=== PATIENT | female | born 1990 | race Two or more races ===

== ENCOUNTER 2017-06-05 07:53 | Inpatient (IN) | payer MEDICAID ==
[~2017-06-05] VITALS: Ht 154.9 cm; Wt 35.4 kg
[2017-06-05] MEDS ORDERED: SODIUM CHLORIDE 0.9% 1,000 ML IVB ONE (08:10)
[2017-06-05] MEDS ORDERED: NALBUPHINE HCL 10 MG/1ml INJECTION IV ONE ×2 (08:15→11:00)
[2017-06-05] MEDS: PROMETHAZINE HCL 25 MG/ML 1ML IV PRN (08:30)
[2017-06-05 08:47] LABS: Basophils # (auto) 0 uL; Basophils % (auto) 0.4 % (0.0-2.0); Eosinophils # (auto) 0.1 uL; Eosinophils % (auto) 1.5 % (0.0-7.0); Hematocrit 39.3 % (36.0-46.0); Hemoglobin 13.1 g/dL (12.2-16.2); Lymphocytes # (auto) 0.8 uL; Lymphocytes % (auto) 9.7 % (10.0-50.0); Mean Corpuscular Hemoglobin 28.7 pg (28.0-32.0); Mean Corpuscular Hgb Conc. 33.3 g/dL (32.0-36.0); Mean Corpuscular Volume 86.1 fL (80.0-100.0); Mean Platelet Volume 7.3 fL (6.9-10.8); Monocytes # (auto) 0.2 uL; Monocytes % (auto) 2.6 % (0.0-12.0); Neutrophils # (auto) 7.3 uL; Neutrophils % (auto) 85.8 % (37.0-80.0); Platelet Count (auto) 415 10^3/uL (140-450); White Blood Cell 8.5 10^3/uL (4.4-10.8)
[2017-06-05 09:05] LABS: Albumin 2.7 g/dL (3.4-5.0); BUN/Creatinine Ratio 8.6; Bilirubin, Total 0.3 mg/dL (0.2-1.0); Calcium 7.8 mg/dL (8.5-10.1); Magnesium 1.6 mg/dL (1.6-2.6); Potassium 3.2 mmol/L (3.5-5.1); Total Protein 7.2 g/dL (6.4-8.2)
[2017-06-05] MEDS ORDERED: cefTRIAXone 1GM/50ML D5W 50 ML IV ONE (10:30)
[2017-06-05] MEDS ORDERED: metroNIDAZOLE 500MG/100ML 100 ML IV ONE (10:30)
[2017-06-05 10:42] LABS: Urine Bilirubin Negative (Negative); Urine Blood 1+ /uL (Negative); Urine Color Yellow (Yellow); Urine Glucose 2+ mg/dL (Normal); Urine Ketone Negative (Negative); Urine Nitrite Negative (Negative); Urine RBC 2 /hpf (0 - 4); Urine Squamous Epithelial Cell FEW /hpf (<5); Urine Urobilinogen Normal (Negative); Urine pH 5.5 (5.0-8.0)
[2017-06-05 10:47] LABS: INR 1.72 (0.9-1.15); Partial Thromboplastin Time 37.4 sec (22.64-33.71); Prothrombin Time 18.9 sec (9.37-12.3)
[2017-06-05] MEDS: HYDROmorphone HCL 2 MG/ML VL IV PRN ×4 (11:00→23:00)
[2017-06-05] MEDS ORDERED: SODIUM CHLORIDE 0.9% 1,000 ML IV ONE (11:00)
[2017-06-05] MEDS ORDERED: ONDANSETRON HCL 4 MG/2 ML VIAL IV PRN (11:30)
[2017-06-05] MEDS ORDERED: DEXTROSE (50%) 50ML SYRG IV PRN (11:30)
[2017-06-05] MEDS ORDERED: MORPHINE SULFATE 10 MG/ML INJ 1ML SDV IV PRN (11:30)
[2017-06-05] MEDS ORDERED: NITROGLYCERIN 0.4 MG SL TAB SL PRN (11:30)
[2017-06-05] MEDS ORDERED: VANCOMYCIN PER PHARMACY 0 MG IV SCH (11:30)
[2017-06-05] MEDS ORDERED: FAMOTIDINE (10MG/ML) 2ML VL IV ONE (11:45)
[2017-06-05] MEDS ORDERED: POTASSIUM CHLORIDE 20 MEQ, LIDOCAINE 1% (LOCAL ANESTH.) 2 ML in SODIUM CHL 0.9% 100 ML IV ONE (12:00)
[2017-06-05] MEDS: ACCU-CHEK COMFORT CURVE STRIP VI SCH ×2 (12:01→18:00)
[2017-06-05] MEDS: InsuLIN REG 1unit/0.01ml Soln (100units/ml) SC SCH ×2 (12:05→18:00)
[2017-06-05] MEDS: ENOXAPARIN SOD 100 MG/1 ML SYRINGE SC SCH ×2 (12:05→22:00)
[2017-06-05 12:27] LABS: Lactic Acid w/Reflex 3.1 mmol/L (0.4-2.0)
[2017-06-05 12:54] LABS: REFLEX LACTIC ACID YES OR NO YES
[2017-06-05] MEDS: VANCOMYCIN 1GM/250ML D5W 250 ML IV SCH ×2 (13:12→20:45)
[2017-06-05] MEDS ORDERED: WARF6TAB21 PO (16:16)
[2017-06-05] MEDS ORDERED: WARF5TAB71 PO (16:16)
[2017-06-05 17:12] VITALS: BP 101/52
[2017-06-05 22:00] VITALS: BP 84/50
[2017-06-05] MEDS ORDERED: ACETAMINOPHEN 325 MG TAB PO PRN (23:30)
[2017-06-05] MEDS: SODIUM CHLORIDE 0.9% 1,000 ML IV SCH (23:30)
[2017-06-06 00:32] LABS: Basophils # (auto) 0 uL; Basophils % (auto) 0.2 % (0.0-2.0); Eosinophils # (auto) 0 uL; Eosinophils % (auto) 0.2 % (0.0-7.0); Hematocrit 33.5 % (36.0-46.0); Lymphocytes # (auto) 1.1 uL; Lymphocytes % (auto) 9.2 % (10.0-50.0); Mean Corpuscular Hemoglobin 27.9 pg (28.0-32.0); Mean Corpuscular Hgb Conc. 32.8 g/dL (32.0-36.0); Mean Corpuscular Volume 85.1 fL (80.0-100.0); Mean Platelet Volume 7.2 fL (6.9-10.8); Monocytes # (auto) 0.9 uL; Monocytes % (auto) 7.5 % (0.0-12.0); Neutrophils % (auto) 82.9 % (37.0-80.0); Platelet Count (auto) 336 10^3/uL (140-450); Red Cell Distribution Width 14.3 % (11.8-14.3); White Blood Cell 12.1 10^3/uL (4.4-10.8)
[2017-06-06] MEDS: InsuLIN REG 1unit/0.01ml Soln (100units/ml) SC SCH ×5 (01:52→23:33)
[2017-06-06 04:57] VITALS: BP 103/67
[2017-06-06] MEDS: VANCOMYCIN 1GM/250ML D5W 250 ML IV SCH ×3 (05:00→21:00)
[2017-06-06 05:56] LABS: Basophils # (auto) 0 uL; Basophils % (auto) 0.4 % (0.0-2.0); Eosinophils # (auto) 0 uL; Eosinophils % (auto) 0.2 % (0.0-7.0); Hematocrit 34.1 % (36.0-46.0); Hemoglobin 11.2 g/dL (12.2-16.2); Lymphocytes # (auto) 1.2 uL; Lymphocytes % (auto) 10.7 % (10.0-50.0); Mean Corpuscular Hemoglobin 27.9 pg (28.0-32.0); Mean Corpuscular Hgb Conc. 32.8 g/dL (32.0-36.0); Mean Corpuscular Volume 85.2 fL (80.0-100.0); Mean Platelet Volume 7.3 fL (6.9-10.8); Monocytes % (auto) 8.6 % (0.0-12.0); Neutrophils # (auto) 8.9 uL; Neutrophils % (auto) 80.1 % (37.0-80.0); Platelet Count (auto) 330 10^3/uL (140-450); Red Cell Distribution Width 14.4 % (11.8-14.3); White Blood Cell 11.2 10^3/uL (4.4-10.8)
[2017-06-06] MEDS: ACCU-CHEK COMFORT CURVE STRIP VI SCH ×5 (05:57→23:34)
[2017-06-06 06:15] LABS: Albumin 2.5 g/dL (3.4-5.0); BUN/Creatinine Ratio 6.8; Calcium 8.2 mg/dL (8.5-10.1); Potassium 3.8 mmol/L (3.5-5.1); Total Protein 7.2 g/dL (6.4-8.2)
[2017-06-06 08:00] VITALS: BP 89/57
[2017-06-06 09:37] VITALS: BP 109/65
[2017-06-06] MEDS: HYDROmorphone HCL 2 MG/ML VL IV PRN ×3 (10:19→20:22)
[2017-06-06] MEDS: ENOXAPARIN SOD 100 MG/1 ML SYRINGE SC SCH ×2 (10:19→21:46)
[2017-06-06] MEDS: FAMOTIDINE (10MG/ML) 2ML VL IV SCH (10:20)
[2017-06-06] MEDS: SODIUM CHLORIDE 0.9% 1,000 ML IV SCH (12:50)
[2017-06-06 17:00] VITALS: BP 120/77
[2017-06-06 21:30] VITALS: BP 124/76
[2017-06-07] MEDS: HYDROmorphone HCL 2 MG/ML VL IV PRN ×6 (01:07→20:53)
[2017-06-07] MEDS: VANCOMYCIN 1GM/250ML D5W 250 ML IV SCH (01:12)
[2017-06-07] MEDS: SODIUM CHLORIDE 0.9% 1,000 ML IV SCH ×2 (02:10→15:30)
[2017-06-07 05:01] VITALS: BP 113/71
[2017-06-07] MEDS: InsuLIN REG 1unit/0.01ml Soln (100units/ml) SC SCH ×4 (06:00→23:41)
[2017-06-07] MEDS: ACCU-CHEK COMFORT CURVE STRIP VI SCH ×4 (06:20→23:41)
[2017-06-07 06:30] VITALS: BP 106/67
[2017-06-07] MEDS ORDERED: PIPERACILLIN TAZO IV ONE (08:00)
[2017-06-07] MEDS ORDERED: [UNRECOGNIZED DRUG - OTHER] IV ONE (08:00)
[2017-06-07 08:30] VITALS: BP 117/70
[2017-06-07 09:00] VITALS: BP 130/86
[2017-06-07] MEDS: FAMOTIDINE (10MG/ML) 2ML VL IV SCH (10:46)
[2017-06-07] MEDS: ENOXAPARIN SOD 100 MG/1 ML SYRINGE SC SCH ×2 (10:46→21:01)
[2017-06-07 13:00] VITALS: BP 111/70
[2017-06-07] MEDS: [UNRECOGNIZED DRUG - OTHER] IV SCH ×2 (16:41→21:01)
[2017-06-07] MEDS: PIPERACILLIN TAZO IV SCH ×2 (16:41→21:01)
[2017-06-07 17:30] VITALS: BP 111/69
[2017-06-08] MEDS: SODIUM CHLORIDE 0.9% 1,000 ML IV SCH ×2 (04:50→18:09)
[2017-06-08] MEDS: HYDROmorphone HCL 2 MG/ML VL IV PRN ×5 (04:59→22:03)
[2017-06-08 05:39] VITALS: BP 101/59
[2017-06-08] MEDS: PIPERACILLIN TAZO IV SCH ×3 (06:13→22:10)
[2017-06-08] MEDS: ACCU-CHEK COMFORT CURVE STRIP VI SCH ×3 (06:13→18:08)
[2017-06-08] MEDS: [UNRECOGNIZED DRUG - OTHER] IV SCH ×3 (06:13→22:10)
[2017-06-08] MEDS: InsuLIN REG 1unit/0.01ml Soln (100units/ml) SC SCH ×3 (06:19→18:00)
[2017-06-08 09:10] VITALS: BP 131/64
[2017-06-08] MEDS: ENOXAPARIN SOD 100 MG/1 ML SYRINGE SC SCH ×2 (09:19→22:11)
[2017-06-08] MEDS: FAMOTIDINE (10MG/ML) 2ML VL IV SCH (09:20)
[2017-06-08 12:30] VITALS: BP 120/62
[2017-06-08 17:00] VITALS: BP 122/76
[2017-06-08 22:00] VITALS: BP 99/62
[2017-06-09] MEDS: HYDROmorphone HCL 2 MG/ML VL IV PRN ×2 (03:41→11:27)
[2017-06-09 05:00] VITALS: BP 107/63
[2017-06-09] MEDS: ACCU-CHEK COMFORT CURVE STRIP VI SCH ×4 (06:00→18:05)
[2017-06-09] MEDS: InsuLIN REG 1unit/0.01ml Soln (100units/ml) SC SCH ×4 (06:00→18:00)
[2017-06-09] MEDS: [UNRECOGNIZED DRUG - OTHER] IV SCH ×2 (06:10→14:00)
[2017-06-09] MEDS: PIPERACILLIN TAZO IV SCH ×2 (06:10→14:00)
[2017-06-09 06:21] LABS: Basophils # (auto) 0 uL; Basophils % (auto) 0.6 % (0.0-2.0); Eosinophils # (auto) 0.2 uL; Eosinophils % (auto) 3.5 % (0.0-7.0); Hematocrit 32.3 % (36.0-46.0); Hemoglobin 10.7 g/dL (12.2-16.2); Lymphocytes # (auto) 1.1 uL; Lymphocytes % (auto) 17.3 % (10.0-50.0); Mean Corpuscular Hgb Conc. 33.1 g/dL (32.0-36.0); Mean Corpuscular Volume 84.6 fL (80.0-100.0); Monocytes # (auto) 0.9 uL; Monocytes % (auto) 13.3 % (0.0-12.0); Neutrophils # (auto) 4.2 uL; Neutrophils % (auto) 65.3 % (37.0-80.0); Platelet Count (auto) 364 10^3/uL (140-450); Red Cell Distribution Width 14.2 % (11.8-14.3); White Blood Cell 6.4 10^3/uL (4.4-10.8)
[2017-06-09 06:43] LABS: Albumin 2.1 g/dL (3.4-5.0); BUN/Creatinine Ratio 5.1; Bilirubin, Total 0.5 mg/dL (0.2-1.0); Calcium 8.1 mg/dL (8.5-10.1); Potassium 3.2 mmol/L (3.5-5.1); Total Protein 6.6 g/dL (6.4-8.2)
[2017-06-09] MEDS: SODIUM CHLORIDE 0.9% 1,000 ML IV SCH (07:30)
[2017-06-09 08:00] VITALS: BP 129/79
[2017-06-09 08:48] VITALS: BP 129/79
[2017-06-09] MEDS: FAMOTIDINE (10MG/ML) 2ML VL IV SCH (10:03)
[2017-06-09] MEDS: PROMETHAZINE HCL 25 MG/ML 1ML IV PRN (10:03)
[2017-06-09] MEDS: ENOXAPARIN SOD 100 MG/1 ML SYRINGE SC SCH (10:03)
[2017-06-09 10:47] VITALS: BP 129/79
[2017-06-09 16:33] VITALS: BP 134/79
== END 2017-06-09 18:27 | disposition home or self-care (01) | DRG 720 ==
LOC: ER 07:53 → TELE 07:54 → TELE-CENTR 14:50 → CENTRAL 06-08 23:45
PROVIDERS: ADMIT Internal Medicine; ATTEND Internal Medicine
DX: A41.9 Sepsis, unspecified organism (principal); K85.90 Acute pancreatitis without necrosis or infection, unspecified; E44.0 Moderate protein-calorie malnutrition; K57.20 Diverticulitis of large intestine with perforation and abscess without bleeding; E11.65 Type 2 diabetes mellitus with hyperglycemia; E83.51 Hypocalcemia; E66.9 Obesity, unspecified; E87.6 Hypokalemia; Z79.01 Long term (current) use of anticoagulants; Z83.3 Family history of diabetes mellitus; Z68.1 Body mass index [BMI] 19.9 or less, adult; Z86.711 Personal history of pulmonary embolism; Z86.718 Personal history of other venous thrombosis and embolism; Z71.3 Dietary counseling and surveillance
CPT/HCPCS: 36415; 51702; 71010; 74176; 80053; 80202; 81001; 82150; 82962; 83036; 83605; 83690; 83735; 84443; 84702; 85025; 85610; 85730; 87040; 87493; 93005; 94761; 96361; 96365; 96366; 96367; 96375; J0696; J1815; J2001; J2543; J3490

== ENCOUNTER 2019-06-21 06:42 | Inpatient (IN) | payer MEDICAID ==
[~2019-06-21] VITALS: Ht 154.9 cm; Wt 99.3 kg
[~2019-06-21 06:42] MED LIST: CEPH500C PO; METR500T14 PO
[2019-06-21 07:31] LABS: Urine WBC None Seen /hpf (0 - 5)
[2019-06-21] MEDS ORDERED: SODIUM CHLORIDE 0.9% 500 ML IVB ONE (07:37)
[2019-06-21] MEDS ORDERED: SODIUM CHLORIDE 0.9% 1,000 ML IV ONE (07:37)
[2019-06-21 07:39] LABS: Basophils # (auto) 0.1 uL; Basophils % (auto) 0.6 % (0.0-2.0); Eosinophils # (auto) 0.1 uL; Eosinophils % (auto) 1.2 % (0.0-7.0); Hematocrit 43.7 % (36.0-46.0); Hemoglobin 14.7 g/dL (12.2-16.2); Lymphocytes # (auto) 1.8 uL; Lymphocytes % (auto) 16.4 % (10.0-50.0); Mean Corpuscular Hemoglobin 29.6 pg (28.0-32.0); Mean Corpuscular Hgb Conc. 33.7 g/dL (32.0-36.0); Mean Corpuscular Volume 87.9 fL (80.0-100.0); Monocytes # (auto) 0.7 uL; Monocytes % (auto) 6.9 % (0.0-12.0); Neutrophils # (auto) 8.1 uL; Neutrophils % (auto) 74.9 % (37.0-80.0); Nucleated Red Blood Cells % 0.1 %; Platelet Count (auto) 319 10^3/uL (140-450); Red Blood Cells 4.97 10^6/uL (4.0-5.20); Red Cell Distribution Width 13.6 % (11.8-14.3); White Blood Cell 10.8 10^3/uL (4.4-10.8)
[2019-06-21] MEDS ORDERED: IOHEXOL 300 MG/ML 100ML BOTTLE IJ ONE (07:43)
[2019-06-21 07:45] LABS: Urine Bacteria FEW /hpf (None Seen); Urine Blood Negative /uL (Negative); Urine Mucus FEW (None Seen); Urine Specific Gravity 1.014 (1.001-1.035)
[2019-06-21] MEDS ORDERED: METOCLOPRAMIDE HCL 5MG/ml INJ 2ml VIAL IV ONE (07:45)
[2019-06-21] MEDS ORDERED: KETOROLAC TROMETH 30 MG/ML 1ML VIAL IV ONE (07:45)
[2019-06-21 07:46] LABS: Albumin 3.5 g/dL (3.4-5.0); BUN/Creatinine Ratio 8.1; Calcium 8.8 mg/dL (8.5-10.1); Potassium 3.7 mmol/L (3.5-5.1)
[2019-06-21 07:49] LABS: Bilirubin, Total 0.9 mg/dL (0.2-1.0); Total Protein 7.8 g/dL (6.4-8.2)
[2019-06-21 08:04] LABS: Magnesium 1.9 mg/dL (1.6-2.6)
[2019-06-21] MEDS ORDERED: metroNIDAZOLE 500MG/100ML 100 ML IV ONE (09:45)
[2019-06-21] MEDS ORDERED: cefTRIAXone 1GM/50ML D5W 50 ML IV ONE (09:45)
[2019-06-21] MEDS ORDERED: DEXTROSE (50%) 50ML SYRG IV PRN (10:00)
[2019-06-21] MEDS: MORPHINE SULF INJ 2 MG/ML SYRINGE 1ML IV PRN ×4 (11:24→22:58)
[2019-06-21] MEDS: ONDANSETRON HCL 4 MG/2 ML VIAL IV PRN ×2 (11:24→19:37)
[2019-06-21] MEDS: InsuLIN REG 1unit/0.01ml Soln (100units/ml) SC SCH ×3 (11:24→21:46)
[2019-06-21] MEDS: ACCU-CHEK COMFORT CURVE STRIP VI SCH ×3 (11:25→21:46)
--- NOTE | 2019-06-21 11:28 | NUR ---
MS admit from ER RAD[facility] QUIROGA admitted to tele/MS after SBAR received. Patient oriented to [facility], primary RN, unit, room, bed, and unit policies regarding patient care and visiting hours. Patient weighed by bed scale and encouraged to call if they need something. All questions and concerns addressed, patient verbalized understanding.
[2019-06-21 11:30] VITALS: BP_SYST 115; BP_SYST 117; BP_DIAS 63
[2019-06-21] MEDS: metroNIDAZOLE 500MG/100ML 100 ML IV SCH ×2 (13:27→21:45)
[2019-06-21 17:23] VITALS: BP 108/63
--- NOTE | 2019-06-21 18:01 | NUR ---
Patient said she has pressure to left lower abdominal and bloating, hospitalist paged , awaiting to call back.
--- NOTE | 2019-06-21 19:30 | NUR ---
Opening Shift Note Assumed care of patient, awake and alert x4. No S/S of distress/SOB or pain. Instructed on POC and to call for assist PRN. Call light is within reach, side rails up x2, bed is in lowest position, brakes are locked. All questions and concerns answered, will continue to monitor for changes Q1hr and PRN.
--- NOTE | 2019-06-21 19:59 | NUR ---
Neil hospitalist, patient is complaining of pressure in her abdomen and states aside from a small one today she has not had a normal BM for 5 days, she is asking for a stool softener.
[2019-06-21] MEDS ORDERED: POLYETHYLENE GLYCOL 17 GM PWDR PO ONE (20:45)
--- NOTE | 2019-06-21 20:45 | NUR ---
Hospitalist called back, new order received for Miralax 17gm powder one time, will carry out and continue to monitor patient.
[2019-06-21 23:55] VITALS: BP 95/55
[2019-06-22] MEDS: MORPHINE SULF INJ 2 MG/ML SYRINGE 1ML IV PRN ×2 (03:14→11:55)
[2019-06-22] MEDS: ONDANSETRON HCL 4 MG/2 ML VIAL IV PRN ×3 (03:15→22:03)
[2019-06-22 05:18] LABS: Basophils # (auto) 0 uL; Basophils % (auto) 0.4 % (0.0-2.0); Eosinophils # (auto) 0.1 uL; Eosinophils % (auto) 1.3 % (0.0-7.0); Hematocrit 35.3 % (36.0-46.0); Hemoglobin 12.2 g/dL (12.2-16.2); Lymphocytes # (auto) 1.5 uL; Lymphocytes % (auto) 17.1 % (10.0-50.0); Mean Corpuscular Hemoglobin 30.2 pg (28.0-32.0); Mean Corpuscular Hgb Conc. 34.6 g/dL (32.0-36.0); Mean Corpuscular Volume 87.3 fL (80.0-100.0); Monocytes # (auto) 0.8 uL; Monocytes % (auto) 9.4 % (0.0-12.0); Neutrophils # (auto) 6.3 uL; Neutrophils % (auto) 71.8 % (37.0-80.0); Platelet Count (auto) 243 10^3/uL (140-450); Red Blood Cells 4.04 10^6/uL (4.0-5.20); Red Cell Distribution Width 13.5 % (11.8-14.3); White Blood Cell 8.8 10^3/uL (4.4-10.8)
[2019-06-22 05:22] VITALS: BP 115/68
[2019-06-22 05:47] LABS: BUN/Creatinine Ratio 6.7; Potassium 3.8 mmol/L (3.5-5.1)
[2019-06-22] MEDS: metroNIDAZOLE 500MG/100ML 100 ML IV SCH ×3 (05:59→22:02)
[2019-06-22] MEDS: InsuLIN REG 1unit/0.01ml Soln (100units/ml) SC SCH ×2 (05:59→11:30)
[2019-06-22] MEDS: ACCU-CHEK COMFORT CURVE STRIP VI SCH ×2 (06:00→12:07)
[2019-06-22] MEDS ORDERED: METF-370 PO (07:48)
[2019-06-22 09:00] VITALS: BP 112/70
[2019-06-22] MEDS: cefTRIAXone 1GM/50ML D5W 50 ML IV SCH (09:23)
[2019-06-22 13:00] VITALS: BP 110/56
[2019-06-22] MEDS: SODIUM CHLORIDE 0.9% 1,000 ML IV SCH (14:49)
[2019-06-22] MEDS: HYDROmorphone HCL 2 MG/ML VL IV PRN ×2 (15:55→22:03)
[2019-06-22] MEDS: LACTULOSE 20Gm/30ML SOLN PO PRN ×2 (16:19→22:04)
[2019-06-22 16:58] VITALS: BP 106/63
--- NOTE | 2019-06-22 19:40 | NUR ---
Opening Shift Note Assumed care of patient, awake and alert. No S/S of distress/SOB or pain. Instructed on POC and to call for assist PRN, will continue to monitor for changes Q1hr and PRN.
[2019-06-22 22:42] VITALS: BP 100/63
[2019-06-23] MEDS: SODIUM CHLORIDE 0.9% 1,000 ML IV SCH ×3 (00:17→16:42)
[2019-06-23] MEDS: metroNIDAZOLE 500MG/100ML 100 ML IV SCH ×3 (05:04→22:20)
[2019-06-23] MEDS: ONDANSETRON HCL 4 MG/2 ML VIAL IV PRN (05:05)
[2019-06-23] MEDS: HYDROmorphone HCL 2 MG/ML VL IV PRN (05:05)
[2019-06-23 05:52] VITALS: BP 103/66
[2019-06-23 07:44] LABS: Calcium 8.3 mg/dL (8.5-10.1); Magnesium 1.8 mg/dL (1.6-2.6)
[2019-06-23 07:46] LABS: BUN/Creatinine Ratio 7.2
[2019-06-23] MEDS: cefTRIAXone 1GM/50ML D5W 50 ML IV SCH (08:30)
[2019-06-23 09:00] VITALS: BP 122/71
[2019-06-23 13:00] VITALS: BP 115/77
[2019-06-23] MEDS ORDERED: MAGNESIUM SULFATE 1GM/100ML 100 ML IV ONE (14:30)
--- NOTE | 2019-06-23 14:36 | NUR ---
NUTRITION ASSESSMENT NOTES Please refer to link notes of nutrition screen form filed under the intervention section of the plan of care for further details. Est. Needs based on AdBW (61 kg): 1200 kcal to 1550 kcal (25-30 kcal/kgAdBW), 61 gms to 73 gms pro (1.0-1.2 gms/kgAdBW). Will continue to monitor pertinent labs and reassess nutrient need prn Thank you. Addendum: 06/23/19 at [address] Amended: Links added.
--- NOTE | 2019-06-23 16:30 | NUR ---
PAGED DR. MAGAÑA RE DIET ORDER PT STATED THAT MD TOLD HER THAT SHE WAS GOING TO CHANGE IT TO SOFT DIET. MD ORDERED FULL LIQUID DIET. MD HAS NOT RETURNED CALL AT THIS TIME.
[2019-06-23 17:00] VITALS: BP 127/65
--- NOTE | 2019-06-23 18:30 | NUR ---
PT C/O PAIN, SWELLING IN HER LT ANTECUBITAL SITE. WAS WONDERING IF IT WAS FROM THE IV. IV SITE LEFT FOREARM, NOTED TO BE PATENT, CLEAR AND NO REDNESS OR SWELLING NOTED. WILL CONTINUE TO MONITOR SITE.
[2019-06-23 22:00] VITALS: BP 124/67
[2019-06-24 05:00] VITALS: BP 119/77
[2019-06-24] MEDS: SODIUM CHLORIDE 0.9% 1,000 ML IV SCH (05:57)
[2019-06-24] MEDS: metroNIDAZOLE 500MG/100ML 100 ML IV SCH ×2 (05:57→13:09)
--- NOTE | 2019-06-24 08:46 | NUR ---
pt back from procedure resting comfortably in bed
[2019-06-24] MEDS: cefTRIAXone 1GM/50ML D5W 50 ML IV SCH (08:53)
[2019-06-24 09:09] VITALS: BP 132/69
--- NOTE | 2019-06-24 10:50 | NUR ---
pt wants to be left off iv fluids so she can walk around risk and benefits explained
--- NOTE | 2019-06-24 12:50 | NUR ---
md heath rounded on pt did not adavance diet, pt communicated want to go home, per pt will b discharged explained to pt importance of staying on full liquid diet till her primary can arrange to see a GI. pt to be discharged home on atb
[2019-06-24 13:00] VITALS: BP 119/58
--- NOTE | 2019-06-24 13:16 | NUR ---
pt stated she needs a voucher to discharge home, pt stated her RN from a couple days ago stated she can have voucher, advised pt i will notify pump house operator
--- NOTE | 2019-06-24 13:51 | NUR ---
housekeeper nanny made aware of pt needing voucher to go home
--- NOTE | 2019-06-24 16:14 | NUR ---
called md due to pt inquiring on discharge time
[2019-06-24 16:24] VITALS: BP 114/72
--- NOTE | 2019-06-24 16:52 | NUR ---
PT SIGNED DISCHARGE PAPERWORK, IV REMOVED NO BLEEDING NOTED, AWAITING [facility] FOR PT TRANSPORT HOME ETA 30-45 MINUTES
--- NOTE | 2019-06-24 17:14 | NUR ---
PT LEFT TO HOME AMBULATORY ACCOMPANIED BY RESOURCE NURSE
== END 2019-06-24 17:14 | disposition home or self-care (01) | DRG 244 ==
LOC: ER 06:42 → OVERFLOW 06:43 → WEST WING 11:02
PROVIDERS: ADMIT Nurse Practitioner Acute Care; ATTEND Internal Medicine
DX: K57.32 Diverticulitis of large intestine without perforation or abscess without bleeding (principal); E66.01 Morbid (severe) obesity due to excess calories; N83.202 Unspecified ovarian cyst, left side; E11.9 Type 2 diabetes mellitus without complications; F17.210 Nicotine dependence, cigarettes, uncomplicated; F12.90 Cannabis use, unspecified, uncomplicated; Z72.89 Other problems related to lifestyle; Z86.711 Personal history of pulmonary embolism; Z68.41 Body mass index [BMI] 40.0-44.9, adult; Z83.3 Family history of diabetes mellitus; Z80.0 Family history of malignant neoplasm of digestive organs; Z79.84 Long term (current) use of oral hypoglycemic drugs
CPT/HCPCS: 36415; 71046; 74177; 80048; 80053; 81001; 81025; 82962; 83036; 83690; 83735; 85025; G0378; J0696; J1885; J2405; J3490

== ENCOUNTER 2022-01-27 21:43 | Inpatient (IN) | payer MEDICAID ==
[~2022-01-27] VITALS: Ht 162.6 cm; Wt 130.2 kg
[~2022-01-27 21:43] MED LIST changes: -CEPH500C PO; +METF-370 PO; -METR500T14 PO
[2022-01-27] MEDS ORDERED: cefTRIAXone 1GM/50ML D5W 50 ML IV ONE (22:15)
[2022-01-27] MEDS ORDERED: SODIUM CHLORIDE 0.9% 1,000 ML IV ONE ×2 (22:15)
[2022-01-27 23:22] LABS: Basophils # (auto) 0.1 10 ^3/uL (0-0.2); Eosinophils # (auto) 0.3 10 ^3/uL (0-0.8); Eosinophils % (auto) 3.2 % (0.0-7.0); Hematocrit 42.9 % (36.0-46.0); Hemoglobin 14.8 g/dL (12.2-16.2); Lymphocytes # (auto) 1.5 10 ^3/uL (0.4-5.4); Lymphocytes % (auto) 15.1 % (10.0-50.0); Mean Corpuscular Hemoglobin 30.4 pg (28.0-32.0); Mean Corpuscular Hgb Conc. 34.6 g/dL (32.0-36.0); Mean Corpuscular Volume 87.9 fL (80.0-100.0); Monocytes # (auto) 0.5 10 ^3/uL (0-1.3); Monocytes % (auto) 5.4 % (0.0-12.0); Neutrophils # (auto) 7.5 10 ^3/uL (1.6-8.6); Neutrophils % (auto) 75.3 % (37.0-80.0); Nucleated Red Blood Cells % 0.1 %; Red Blood Cells 4.87 10^6/uL (4.0-5.20); Red Cell Distribution Width 12.5 % (11.8-14.3)
[2022-01-27 23:24] LABS: Urine Bacteria FEW /hpf (None Seen); Urine Blood Negative /uL (Negative); Urine Specific Gravity 1.012 (1.001-1.035); Urine WBC 2 /hpf (0 - 5)
[2022-01-27 23:37] LABS: Albumin 3.7 g/dL (3.4-5.0); BUN/Creatinine Ratio 13.3; Calcium 9.1 mg/dL (8.5-10.1); Potassium 4.1 mmol/L (3.5-5.1)
[2022-01-27 23:40] LABS: Bilirubin, Total 0.6 mg/dL (0.2-1.0)
[2022-01-27 23:41] LABS: Lactic Acid w/Reflex 2.6 mmol/L (0.4-2.0)
[2022-01-28] MEDS ORDERED: ENOXAPARIN SOD 150 MG/1 ML SYRINGE SC ONE (01:15)
[2022-01-28] MEDS ORDERED: IOHEXOL 350 MG/ML 100ML IJ ONE (01:23)
[2022-01-28] MEDS ORDERED: MORPHINE SULFATE INJ 2 MG/ml SYRG IV PRN (04:30)
[2022-01-28] MEDS ORDERED: TEMAZEPAM 15 MG CAP PO PRN (04:30)
[2022-01-28] MEDS ORDERED: ACETAMINOPHEN 325 MG TAB PO PRN (04:30)
[2022-01-28] MEDS ORDERED: ONDANSETRON HCL 4 MG/2 ML VIAL IV PRN (04:30)
[2022-01-28] MEDS ORDERED: NITROGLYCERIN 0.4 MG SL TAB SL PRN (04:30)
[2022-01-28] MEDS: PANTOPRAZOLE 40 MG TAB PO SCH (09:41)
[2022-01-28] MEDS: ASPirin 81 mg TAB PO SCH (09:41)
[2022-01-28] MEDS: ENOXAPARIN SOD 100 MG/1 ML SYRINGE SC SCH (14:08)
[2022-01-28] MEDS ORDERED: DEXTROSE (50%) 50ML SYRG IV PRN (15:00)
[2022-01-28 16:40] VITALS: BP 122/83
[2022-01-28] MEDS: ACCU-CHEK COMFORT CURVE STRIP VI SCH ×2 (16:49→21:55)
[2022-01-28] MEDS: InsuLIN REG 1unit/0.01ml Soln (100units/ml) SC SCH ×2 (16:54→22:08)
[2022-01-28 20:00] VITALS: BP 123/78
[2022-01-28] MEDS: cefTRIAXone 1GM/50ML D5W 50 ML IV SCH (21:51)
[2022-01-28] MEDS: ATORVASTATIN 20 MG TAB PO SCH (21:53)
[2022-01-28 22:00] VITALS: BP 123/78
[2022-01-29] MEDS: ENOXAPARIN SOD 100 MG/1 ML SYRINGE SC SCH ×2 (00:37→13:09)
[2022-01-29 04:55] VITALS: BP 127/77
[2022-01-29 05:28] LABS: Basophils # (auto) 0.3 10 ^3/uL (0-0.2); Basophils % (auto) 4.1 % (0.0-2.0); Eosinophils # (auto) 0.3 10 ^3/uL (0-0.8); Eosinophils % (auto) 4.9 % (0.0-7.0); Hematocrit 38.3 % (36.0-46.0); Hemoglobin 13.5 g/dL (12.2-16.2); Lymphocytes # (auto) 2.3 10 ^3/uL (0.4-5.4); Lymphocytes % (auto) 32.8 % (10.0-50.0); Mean Corpuscular Hemoglobin 30.8 pg (28.0-32.0); Mean Corpuscular Hgb Conc. 35.2 g/dL (32.0-36.0); Mean Corpuscular Volume 87.5 fL (80.0-100.0); Monocytes # (auto) 0.4 10 ^3/uL (0-1.3); Monocytes % (auto) 6.3 % (0.0-12.0); Neutrophils # (auto) 3.7 10 ^3/uL (1.6-8.6); Neutrophils % (auto) 51.9 % (37.0-80.0); Nucleated Red Blood Cells % 0.2 %; Red Blood Cells 4.38 10^6/uL (4.0-5.20); Red Cell Distribution Width 12.4 % (11.8-14.3)
[2022-01-29 05:31] LABS: INR 1.1 (0.9-1.15)
[2022-01-29 05:54] LABS: Potassium 3.9 mmol/L (3.5-5.1)
[2022-01-29 06:02] LABS: Albumin 3.1 g/dL (3.4-5.0); BUN/Creatinine Ratio 10.5; Bilirubin, Total 0.8 mg/dL (0.2-1.0); Calcium 8.7 mg/dL (8.5-10.1); Total Protein 6.9 g/dL (6.4-8.2)
[2022-01-29] MEDS: ACCU-CHEK COMFORT CURVE STRIP VI SCH ×4 (06:21→21:59)
[2022-01-29] MEDS: InsuLIN REG 1unit/0.01ml Soln (100units/ml) SC SCH ×4 (06:25→22:15)
[2022-01-29] MEDS: ASPirin 81 mg TAB PO SCH (08:32)
[2022-01-29] MEDS: PANTOPRAZOLE 40 MG TAB PO SCH (08:32)
[2022-01-29 08:56] VITALS: BP 121/74
[2022-01-29 13:25] VITALS: BP 140/94
[2022-01-29 16:26] VITALS: BP 134/97
[2022-01-29] MEDS: ATORVASTATIN 20 MG TAB PO SCH (21:59)
[2022-01-29] MEDS: cefTRIAXone 1GM/50ML D5W 50 ML IV SCH (21:59)
[2022-01-30] VITALS (7 sets, daily range): BP systolic 116–131; BP diastolic 76–94
[2022-01-30] MEDS: ENOXAPARIN SOD 100 MG/1 ML SYRINGE SC SCH ×2 (01:30→13:00)
[2022-01-30 06:28] LABS: Potassium 4.8 mmol/L (3.5-5.1)
[2022-01-30] MEDS: ACCU-CHEK COMFORT CURVE STRIP VI SCH ×3 (06:47→18:52)
[2022-01-30] MEDS: InsuLIN REG 1unit/0.01ml Soln (100units/ml) SC SCH ×3 (06:48→18:53)
[2022-01-30] MEDS: ASPirin 81 mg TAB PO SCH (11:21)
[2022-01-30] MEDS: PANTOPRAZOLE 40 MG TAB PO SCH (11:22)
[2022-01-30] MEDS ORDERED: IOHEXOL 350 MG/ML 100ML IJ ONE (14:20)
[2022-01-30] MEDS ORDERED: ANGIOMAX 250 MG VIAL IV ONE (14:29)
[2022-01-30] MEDS ORDERED: fentaNYL CITRATE 100 MCG/2 ML VL ONE (14:29)
[2022-01-30] MEDS ORDERED: MIDAZOLAM HCL 2MG/2ML 2ml VIAL (1mg/ml) ONE (14:29)
[2022-01-30] MEDS ORDERED: SODIUM CHL 0.9% 0 ML ONE (14:29)
[2022-01-30] MEDS ORDERED: LIDOCAINE 2%HCL (LOCAL ANESTH.) INJ 10ml MDV ONE (14:30)
== END 2022-01-30 19:15 | disposition home or self-care (01) | DRG 134 ==
LOC: ER 21:43 → TELE 01-28 04:23 → TELE-WESTW 01-28 08:58
PROVIDERS: ADMIT Nurse Practitioner; ATTEND Internal Medicine
PROC: 4A023N8 Measurement of Cardiac Sampling and Pressure, Bilateral, Percutaneous Approach (ICD-10-PCS; principal; 2022-01-30)
PROC: B2111ZZ Fluoroscopy of Multiple Coronary Arteries using Low Osmolar Contrast (ICD-10-PCS; 2022-01-30)
PROC: B2151ZZ Fluoroscopy of Left Heart using Low Osmolar Contrast (ICD-10-PCS; 2022-01-30)
DX: I26.99 Other pulmonary embolism without acute cor pulmonale (principal); I21.A1 Myocardial infarction type 2; I27.21 Secondary pulmonary arterial hypertension; I82.442 Acute embolism and thrombosis of left tibial vein; E11.65 Type 2 diabetes mellitus with hyperglycemia; R06.03 Acute respiratory distress; N39.0 Urinary tract infection, site not specified; I11.9 Hypertensive heart disease without heart failure; Z20.822 Contact with and (suspected) exposure to COVID-19; F12.90 Cannabis use, unspecified, uncomplicated; E66.01 Morbid (severe) obesity due to excess calories; F17.210 Nicotine dependence, cigarettes, uncomplicated; Z68.42 Body mass index [BMI] 45.0-49.9, adult; Z80.0 Family history of malignant neoplasm of digestive organs; Z83.3 Family history of diabetes mellitus; Z86.711 Personal history of pulmonary embolism; Z86.718 Personal history of other venous thrombosis and embolism; Z98.891 History of uterine scar from previous surgery; Z71.6 Tobacco abuse counseling; Z79.84 Long term (current) use of oral hypoglycemic drugs
CPT/HCPCS: 36415; 71045; 71275; 80053; 80061; 81001; 82962; 83036; 83605; 83735; 83880; 84132; 84443; 84484; 84702; 85025; 85379; 85610; 86147; 87040; 87086; 93005; 93306; 93460; 93970; 96361; 96365; 99152; 99153; 99291; C1751; G0378; J0696; J1815; J2001; J2250

== ENCOUNTER 2023-04-01 09:37 | Emergency (ER) | payer MEDICAID ==
[~2023-04-01] VITALS: Ht 154.9 cm; Wt 128.1 kg
[2023-04-01 10:52] VITALS: BP 125/78; PULSE 98; RESP 18; TEMP 97.3; O2SAT 100
[2023-04-01 11:58] LABS: Urine Bacteria NONE SEEN /hpf (None Seen); Urine Blood Negative /uL (Negative); Urine Clarity HAZY (Clear); Urine Color Yellow (Yellow); Urine Protein, UAD Negative (Negative); Urine Specific Gravity 1.011 (1.001-1.035); Urine Urobilinogen Normal (Negative); Urine WBC 4 /hpf (0 - 5)
[2023-04-01] MEDS ORDERED: CEPH500C PO (12:02)
[2023-04-01] MEDS ORDERED: ACET-1080 PO (12:02)
== END 2023-04-01 12:09 | disposition home or self-care (01) ==
LOC: ER 09:37
DX: O26.891 Other specified pregnancy related conditions, first trimester (principal); J03.90 Acute tonsillitis, unspecified; R51.9 Headache, unspecified; E11.9 Type 2 diabetes mellitus without complications; F17.210 Nicotine dependence, cigarettes, uncomplicated; F15.90 Other stimulant use, unspecified, uncomplicated; Z3A.09 9 weeks gestation of pregnancy; Z98.890 Other specified postprocedural states; Z79.84 Long term (current) use of oral hypoglycemic drugs; Z79.1 Long term (current) use of non-steroidal anti-inflammatories (NSAID); Z79.899 Other long term (current) drug therapy
CPT/HCPCS: 81001; 81002

== ENCOUNTER 2024-04-16 15:42 | Emergency (ER) | payer MEDICAID ==
[~2024-04-16] VITALS: Ht 154.9 cm; Wt 126.1 kg
[~2024-04-16 15:42] MED LIST changes: +ACET-1080 PO; +CEPH500C PO
[2024-04-16 16:10] VITALS: BP 132/75; PULSE 89; RESP 14; O2SAT 97
[2024-04-16 17:48] LABS: Basophils # (auto) 0.1 10 ^3/uL (0-0.2); Basophils % (auto) 0.8 % (0.0-2.0); Eosinophils # (auto) 0.2 10 ^3/uL (0-0.8); Eosinophils % (auto) 2.1 % (0.0-7.0); Hematocrit 41.2 % (36.0-46.0); Hemoglobin 13.9 g/dL (12.2-16.2); Lymphocytes # (auto) 2.6 10 ^3/uL (0.4-5.4); Lymphocytes % (auto) 29.7 % (10.0-50.0); Mean Corpuscular Hemoglobin 29.4 pg (28.0-32.0); Mean Corpuscular Hgb Conc. 33.8 g/dL (32.0-36.0); Monocytes # (auto) 0.6 10 ^3/uL (0-1.3); Monocytes % (auto) 6.4 % (0.0-12.0); Neutrophils # (auto) 5.3 10 ^3/uL (1.6-8.6); Platelet Count (auto) 310 10^3/uL (140-450); Red Blood Cells 4.73 10^6/uL (4.0-5.20); White Blood Cell 8.7 10^3/uL (4.4-10.8)
[2024-04-16 18:04] LABS: Partial Thromboplastin Time 25.4 SEC (24.5-34.5); Prothrombin Time 10.6 sec (9.3-11.8)
[2024-04-16 18:07] LABS: Urine Bacteria FEW /hpf (None Seen); Urine Blood 3+ /uL (Negative); Urine Clarity Turbid (Clear); Urine Color Light-Yellow (Yellow); Urine Hyaline Cast FEW /lpf (0 - 2); Urine Protein, UAD Negative (Negative); Urine Specific Gravity 1.013 (1.001-1.035); Urine Urobilinogen Normal (Negative); Urine WBC 3 /hpf (0 - 5); Urine pH 5.5 (5.0-9.0)
== END 2024-04-16 21:29 | disposition home or self-care (01) ==
LOC: ER 15:42
DX: O20.9 Hemorrhage in early pregnancy, unspecified (principal); R10.2 Pelvic and perineal pain; O24.311 Unspecified pre-existing diabetes mellitus in pregnancy, first trimester; F17.210 Nicotine dependence, cigarettes, uncomplicated; F12.90 Cannabis use, unspecified, uncomplicated; Z3A.01 Less than 8 weeks gestation of pregnancy; Z98.890 Other specified postprocedural states; Z79.899 Other long term (current) drug therapy; O26.891 Other specified pregnancy related conditions, first trimester
CPT/HCPCS: 36415; 76801; 76817; 81001; 84702; 85025; 85610; 85730; 86850; 86900; 86901